=== PATIENT | female | born 1955 | race Caucasian/White ===

== ENCOUNTER 2019-01-11 21:48 | Emergency (ER) | payer OTHER ==
[~2019-01-11] VITALS: Ht 172.7 cm; Wt 68.0 kg
[~2019-01-11 21:48] MED LIST: ALAVERT10 M1 PO; ASPI-COR81 M1 PO; ASPIRIN81 M1 PO; AUGMENTIN 500500 MG PO; BUSPIRONE10 MG PO; CILOXAN 5 ML5 M1 OT; CLARITIN10 MG PO; CLINDAMYCIN300 MG PO; CLOPIDOGREL75 MG PO; COMPAZINE10 M1 PO; DARVOCET N 1001 TAB PO; DAYPRO600 M1 PO; DEXILANT60 M1 PO; EC NAPROSYN500 MG PO; IBU800 MG PO; LIPITOR80 MG PO; LISINOPRIL20 MG PO; LYRICA75 MG PO; Lopressor25 MG PO; MAXAIR0.2 MG/ACT; MECLIZINE HCL25 M1 PO; METOPROLOL SUCC50 M1 PO; METOPROLOL25 MG PO; MOTRIN800 MG; Motrin,Rufen800 MG PO; NAPROSYN500 MG PO; NITROSTAT0.4 MG SL; NORCO 325 MG-51 TAB PO; OMEPRAZOLE DR20 MG PO; PLAVIX75 M1 PO; PREDNISONE10 MG PO; PROAIR INH; SERTRALINE50 MG PO; VOLTAREN50 M1 PO; ZITHROMAX TRI-500 M1 PO; ZOLOFT50 MG PO
[2019-01-11] MEDS ORDERED: TRAZODONE50 MG PO (21:54)
[2019-01-11] MEDS ORDERED: VITAMIN D50000 UNIT PO (21:55)
[2019-01-11 23:19] VITALS: BP 165/60
[2019-01-11] MEDS ORDERED: IBU800 MG PO (23:55)
[2019-01-11] MEDS ORDERED: NORCO 5-325 TA1 EACH PO (23:57)
== END 2019-01-12 00:17 | disposition home or self-care (01) ==
LOC: ED 21:48
DX: S42.292A Other displaced fracture of upper end of left humerus, initial encounter for closed fracture (principal); I10 Essential (primary) hypertension; E78.5 Hyperlipidemia, unspecified; I25.2 Old myocardial infarction; F17.200 Nicotine dependence, unspecified, uncomplicated; Z88.2 Allergy status to sulfonamides; Z88.8 Allergy status to other drugs, medicaments and biological substances; Z79.82 Long term (current) use of aspirin; Z79.899 Other long term (current) drug therapy; W00.2XXA Other fall from one level to another due to ice and snow, initial encounter; Y93.H1 Activity, digging, shoveling and raking; Y92.098 Other place in other non-institutional residence as the place of occurrence of the external cause; Y99.8 Other external cause status

== ENCOUNTER 2020-04-24 21:00 | Observation (INO) | payer OTHER ==
[~2020-04-24] VITALS: Ht 172.7 cm; Wt 63.3 kg
[~2020-04-24 21:00] MED LIST changes: +NORCO 5-325 TA1 EACH PO; +TRAZODONE50 MG PO; +VITAMIN D31250 MC1 PO
[2020-04-24 21:09] VITALS: BP 193/85
[2020-04-24 22:26] LABS: BASO # 0.1 10*3/uL (0.0-0.1); BASO % 0.7 % (0.0-1.0); EOS % 0.4 % (1.0-4.0); HEMATOCRIT 37.2 % (37.0-47.0); LYMPH # 1.5 10*3/uL (1.3-4.4); LYMPH % 17.2 % (27.0-41.0); MEAN CELL VOLUME 99.5 fl (81.0-99.0); MEAN CORPUSCULAR HGB 33.2 pg (27.0-31.0); MEAN CORPUSCULAR HGB CONC 33.3 g/dl (33.0-37.0); MEAN PLATELET VOLUME 10.2 fl (9.6-12.3); MONO # 0.7 10*3/uL (0.1-1.0); MONO % 8.2 % (3.0-9.0); NEUT # 6.2 10*3/uL (2.3-7.9); NEUT % 73.1 % (47.0-73.0); PLATELET COUNT AUTOMATED 205 10*3/uL (130-400); RED BLOOD COUNT 3.74 10*6/uL (4.10-5.10); RED CELL DISTRI WIDTH 12.8 % (0-14.5); WHITE BLOOD COUNT 8.5 10*3/uL (4.8-10.8)
[2020-04-24 22:40] VITALS: BP 184/75
[2020-04-24 22:42] LABS: ALBUMIN 3.8 gm/dl (3.1-4.5); ALKALINE PHOSPHATASE 72 U/L (45-117); BUN 18 mg/dl (7-24); CHLORIDE 104 mmol/L (98-107); CREATININE 0.99 mg/dL (0.55-1.02); POTASSIUM 3.7 mmol/L (3.5-5.1); SGOT/AST 29 IU/L (3-35); SGPT/ALT 28 U/L (12-78); SODIUM 137 mmol/L (136-145); TOTAL PROTEIN 7.9 gm/dL (6.4-8.2)
[2020-04-24 22:44] LABS: TROPONIN I < 0.015 ng/ml (<0.045)
[2020-04-24 23:11] LABS: BILIRUBIN NEGATIVE (NEGATIVE); BLOOD 1+ (NEGATIVE); CLARITY SL CLOUDY (CLEAR); COLOR YELLOW (YELLOW); GLUCOSE NEGATIVE (NEGATIVE); KETONE NEGATIVE (NEGATIVE); LEUKO ESTERASE 1+ (NEGATIVE); NITRITE POSITIVE (NEGATIVE); UROBILINOGEN 0.2 E.U./dl (0.2-1.0)
[2020-04-24 23:12] LABS: EPITHELIAL CELLS 16-20
[2020-04-24 23:13] LABS: BACTERIA 2+; RBC 16-20 rbc/hpf (0-2)
[2020-04-25 00:45] VITALS: BP 180/70
--- NOTE | 2020-04-25 00:45 | NUR ---
A 64, admitted to , under the services of ZULMA Valdez DO with a diagnosis of UTI, SYNCOPY. Chief complaint is URINARY FREQUENCY. Patient arrived via wheel chair from ER. Monitor applied. Initial assessment completed. Vital signs taken and recorded. ZULMA VALDEZ DO notified of admission to the unit. Orders received. See assessment for past medical history, medications and allergies. Patient and/or family oriented to unit. [facility] visitation policy reviewed. Clothing/patient valuable form completed. ANICETO VARGAS
[2020-04-25 05:00] VITALS: BP 125/97
[2020-04-25 08:00] VITALS: BP 138/58
--- NOTE | 2020-04-25 08:00 | NUR ---
PHYSICAL THERAPY Screen and PT eval received will follow thank you Citlali Sanches PT
--- NOTE | 2020-04-25 08:36 | NUR ---
OFF FLOOR FOR MRI.
--- NOTE | 2020-04-25 09:00 | NUR ---
Flight Inspector in to talk to patient. Patient states lives at home with alone. There are 5 steps in the home. Physician: shayy rojas Pharmacy: [facility] Home health services: none Patient's level of ADLs: INDEPENDENT Patient has working utilities: all working DME: cane Follow-up physician's appointment after d/c: will be made by hospitalist nurse director upon discharge Does patient want to access PORTAL?: no Discharge plan discussed with patient, she states she lives at home alone, she states she gets around fine with a cane and is independent petey dls, she states she will return home when medically stable and denies any home needs, patient states she will return home when medically stable. case management will follow. ESPINOZA SINGH
--- NOTE | 2020-04-25 09:16 | NUR ---
AWARE MED REC WAS UPDATED BUT NO HOME MEDS HAVE BEEN RESTARTED.
--- NOTE | 2020-04-25 10:21 | NUR ---
BACK TO ROOM FOLLOWING IMAGING.
--- NOTE | 2020-04-25 10:45 | NUR ---
IN TO SEE PT AND EXPLAIN FINDINGS OF MRI WITH THIS NURSE AT HER SIDE. QUESTIONED TO TRANSFER TO [facility] TODAY. PT WAS NOT AGREEABLE TO TRANSFER TO ANOTHER FACILITY TODAY BUT WAS AGREEABLE TO TRANSFER TO ANOTHER FACILITY TOMORROW, 04/26/20. IT WAS EXPLAINED TO HER THAT IF HER CONDITION WORSENS WE MAY NOT HAVE THE INTERVENTIONS TO HELP BECAUUSE SHE NEEDS TO SEE ONCOLOGY AND NEUROLOGY WHICH THIS FACILITY DOES NOT OFFER. PT WAS STILL NOT AGREEABLE TO TRANSFER FACILITIES TODAY AND IS REQUESTING THAT SHE BE TRANSFERRED TOMORROW. SHE VOICED NO NEW COMPLAINTS AT THIS TIME. CALL LIGHT WITHIN REACH. BED ALARM ON.
--- NOTE | 2020-04-25 10:49 | NUR ---
PHYSICAL THERAPY Eval received chart reviewed per medical team meeting this AM will defer/hold PT evaluation as new findings of MRI for acute multiple cortical infarcts and carotid dopplers demonstrating stenosis JERRELL>LICA. Per MD's looking to transfer patient to a higher level care facility today. Citlali Sanches PT
--- NOTE | 2020-04-25 10:52 | NUR ---
OT NOTE Occupational therapy order received and chart reviewed. Per discussion at discharge planning meeting by MD, patient may require a transfer for a higher level of care. Will hold/defer OT this date until further notification from MD/hospitalist. Thank you. Eliane Tellez, OTR/L
--- NOTE | 2020-04-25 11:10 | NUR ---
AND IN TO SEE PT AND DISCUSS MRI FINDINGS AGAIN. PT NOW AGREEABLE TO TRANSFER TO ANOTHER FACILITY TODAY.
[2020-04-25 12:00] VITALS: BP 118/68
[2020-04-25] MEDS ORDERED: CEFTRIAXONE1 GM IJ (12:23)
--- NOTE | 2020-04-25 12:48 | NUR ---
UPDATED MARIAN SISTER ON TRANSFER STATUS.
--- NOTE | 2020-04-25 12:48 | NUR ---
Discharge instructions reviewed with patient/family. Patient receptive and verbalizes understanding. Follow-up care arranged. Written instructions given to patient/family. DIVINE WILL
--- NOTE | 2020-04-25 12:58 | NUR ---
NURSE TO NURSE REPORT GIVEN TO [facility] NURSE.
== END 2020-04-25 13:04 | disposition home or self-care (01) ==
LOC: ED 21:00 → 4E 23:45 → EDHOLD 23:45 → 4E 23:45
PROVIDERS: Emergency Medicine; ADMIT Family Medicine
DX: R55 Syncope and collapse (principal); N39.0 Urinary tract infection, site not specified; D75.89 Other specified diseases of blood and blood-forming organs; I12.9 Hypertensive chronic kidney disease with stage 1 through stage 4 chronic kidney disease, or unspecified chronic kidney disease; N18.3 Chronic kidney disease, stage 3 (moderate); E44.1 Mild protein-calorie malnutrition; I16.0 Hypertensive urgency; J44.9 Chronic obstructive pulmonary disease, unspecified; E78.5 Hyperlipidemia, unspecified; C79.89 Secondary malignant neoplasm of other specified sites; I25.10 Atherosclerotic heart disease of native coronary artery without angina pectoris; F17.210 Nicotine dependence, cigarettes, uncomplicated

== ENCOUNTER 2021-06-12 19:01 | Inpatient (IN) | payer OTHER ==
[~2021-06-12] VITALS: Ht 152.4 cm; Wt 52.7 kg
[~2021-06-12 19:01] MED LIST changes: +CEFTRIAXONE1 GM IJ
[2021-06-12 19:13] VITALS: BP 132/69
[2021-06-12 19:52] LABS: HEMATOCRIT 29.7 % (37.0-47.0); MEAN CELL VOLUME 93.7 fl (81.0-99.0); MEAN CORPUSCULAR HGB 29.7 pg (27.0-31.0); MEAN CORPUSCULAR HGB CONC 31.6 g/dl (33.0-37.0); MEAN PLATELET VOLUME 9.6 fl (9.6-12.3); PLATELET COUNT AUTOMATED 281 10*3/uL (130-400); RED BLOOD COUNT 3.17 10*6/uL (4.10-5.10); RED CELL DISTRI WIDTH 12.8 % (0-14.5)
[2021-06-12 20:08] LABS: TOTAL CELLS COUNTED 100 #CELLS
[2021-06-12 20:09] LABS: ALBUMIN 3.5 gm/dl (3.1-4.5); ALKALINE PHOSPHATASE 78 U/L (45-117); BUN 28 mg/dl (7-24); CHLORIDE 97 mmol/L (98-107); CREATININE 0.99 mg/dL (0.55-1.02); PLATELET SUFFICIENCY NORMAL (NORMAL); POTASSIUM 3.4 mmol/L (3.5-5.1); SGOT/AST 34 IU/L (3-35); SGPT/ALT 31 U/L (12-78); SODIUM 129 mmol/L (136-145); TOTAL PROTEIN 7.4 gm/dL (6.4-8.2)
[2021-06-12 20:12] LABS: TROPONIN I < 0.015 ng/ml (<0.045)
[2021-06-12 20:23] LABS: ETHYL ALCOHOL < 3.0 mg/dl (<3)
[2021-06-12 20:52] LABS: BILIRUBIN Negative (Negative); BLOOD Negative (Negative); CLARITY Clear (Clear); COLOR Yellow (Yellow); GLUCOSE 2+ (Negative); KETONE 2+ (Negative); LEUKO ESTERASE Negative (Negative); NITRITE Negative (Negative); PH 5.5 (4.5-8.0)
[2021-06-12 20:59] LABS: URINE AMPHETAMINES < 1000 (1000ng/ml); URINE BARBITURATES < 200 (200ng/ml); URINE BENZODIAZEPINES < 200 (200ng/ml); URINE CANNABINOIDS (THC) < 50 (50ng/ml); URINE COCAINE < 300 (300ng/ml); URINE METHADONE < 300 (300ng/ml); URINE OPIATES < 300 (300ng/ml)
[2021-06-12 21:00] LABS: URINE PHENCYCLIDINE < 25 (25ng/ml)
[2021-06-12 21:02] LABS: EPITHELIAL CELLS 0-2; RBC 0-2 rbc/hpf (0-2)
[2021-06-12 21:03] LABS: BACTERIA 2+; MUCOUS TRACE
[2021-06-12 21:19] VITALS: BP 127/59
[2021-06-13] VITALS (7 sets, daily range): BP systolic 90–140; BP diastolic 46–74
[2021-06-13] MEDS ORDERED: Synthroid,Levo88 MCG PO (02:09)
[2021-06-13] MEDS ORDERED: OMEPRAZOLE MAGN20 MG PO (02:09)
[2021-06-13 06:58] LABS: BASO % 0.3 % (0.0-1.0); EOS # 0.1 10*3/uL (0.0-0.4); EOS % 1.5 % (1.0-4.0); HEMATOCRIT 33.3 % (37.0-47.0); LYMPH # 0.8 10*3/uL (1.3-4.4); LYMPH % 10.1 % (27.0-41.0); MEAN CELL VOLUME 92.2 fl (81.0-99.0); MEAN CORPUSCULAR HGB 29.6 pg (27.0-31.0); MEAN CORPUSCULAR HGB CONC 32.1 g/dl (33.0-37.0); MEAN PLATELET VOLUME 10.5 fl (9.6-12.3); MONO # 0.7 10*3/uL (0.1-1.0); MONO % 8.9 % (3.0-9.0); NEUT # 6.2 10*3/uL (2.3-7.9); NEUT % 78.7 % (47.0-73.0); PLATELET COUNT AUTOMATED 357 10*3/uL (130-400); RED BLOOD COUNT 3.61 10*6/uL (4.10-5.10); RED CELL DISTRI WIDTH 12.8 % (0-14.5); WHITE BLOOD COUNT 7.9 10*3/uL (4.8-10.8)
[2021-06-13 07:14] LABS: CHLORIDE 100 mmol/L (98-107); POTASSIUM 3.5 mmol/L (3.5-5.1); SODIUM 132 mmol/L (136-145)
[2021-06-13 07:28] LABS: ALBUMIN 3.7 gm/dl (3.1-4.5); ALKALINE PHOSPHATASE 84 U/L (45-117); BUN 22 mg/dl (7-24); CHOLESTEROL 182 mg/dL (<200); CREATININE 0.78 mg/dL (0.55-1.02); FREE T4 1.08 ng/dl (0.76-1.46); LDL CHOLESTEROL 85 mg/dL (9-159); SGOT/AST 36 IU/L (3-35); SGPT/ALT 33 U/L (12-78); TOTAL PROTEIN 7.7 gm/dL (6.4-8.2); TRIGLYCERIDES 110 mg/dl (<150)
[2021-06-13 07:56] LABS: VITAMIN D, 25-HYDROXY 103.6 ng/mL (30-100)
[2021-06-14] VITALS: BP 102/50
[2021-06-14 08:00] VITALS: BP 141/78
[2021-06-14 12:00] VITALS: BP 109/56
[2021-06-14 16:00] VITALS: BP 116/48
== END 2021-06-14 14:05 | disposition short-term general hospital (02) | DRG 80 ==
LOC: ED 19:01 → 4E 22:43 → EDHOLD 22:43 → 4E 06-13 01:29
PROVIDERS: Emergency Medicine; Internal Medicine; ADMIT Student in an Organized Health Care Education/Training Program; ATTEND Student in an Organized Health Care Education/Training Program
DX: G93.6 Cerebral edema (principal); I63.9 Cerebral infarction, unspecified; G93.41 Metabolic encephalopathy; C79.89 Secondary malignant neoplasm of other specified sites; C79.31 Secondary malignant neoplasm of brain; E87.1 Hypo-osmolality and hyponatremia; I12.9 Hypertensive chronic kidney disease with stage 1 through stage 4 chronic kidney disease, or unspecified chronic kidney disease; E86.0 Dehydration; N18.31 Chronic kidney disease, stage 3a; R00.1 Bradycardia, unspecified; D64.9 Anemia, unspecified; E87.6 Hypokalemia; E87.8 Other disorders of electrolyte and fluid balance, not elsewhere classified; R73.9 Hyperglycemia, unspecified; E03.9 Hypothyroidism, unspecified; J44.9 Chronic obstructive pulmonary disease, unspecified; E78.5 Hyperlipidemia, unspecified; I25.10 Atherosclerotic heart disease of native coronary artery without angina pectoris; E55.9 Vitamin D deficiency, unspecified; E16.2 Hypoglycemia, unspecified; Z91.030 Bee allergy status; Z88.2 Allergy status to sulfonamides; Z88.8 Allergy status to other drugs, medicaments and biological substances; Z98.891 History of uterine scar from previous surgery; Z90.721 Acquired absence of ovaries, unilateral; Z80.6 Family history of leukemia; Z82.49 Family history of ischemic heart disease and other diseases of the circulatory system; Z83.3 Family history of diabetes mellitus; Z82.3 Family history of stroke; Z80.8 Family history of malignant neoplasm of other organs or systems; Z86.73 Personal history of transient ischemic attack (TIA), and cerebral infarction without residual deficits; Z95.5 Presence of coronary angioplasty implant and graft; Z79.82 Long term (current) use of aspirin; Z79.899 Other long term (current) drug therapy; Z85.828 Personal history of other malignant neoplasm of skin